=== PATIENT | female | born 1995 | race Caucasian/White ===

== ENCOUNTER 2016-09-14 11:46 | Emergency (ER) | payer SELFPAY ==
[~2016-09-14 11:46] MED LIST: ABILIFY2 MG PO; ADDERALL 15 MG15 MG PO; AMOXIL400 MG/5 M PO; ANXIETY MED; BIRTH CONTROL; CIPRO500 MG PO; CYCLOBENZAPRINE5 M1 PO; FLEXERIL10 MG PO; FLUOXETINE HCL20 MG PO; IBUPROFEN800 M1 PO; MOTRIN800 MG PO; NORCO 5-325 TA1 EACH PO; PERCOCET 5MG/AP1 TAB PO; PRENA1 CHEW TA1.4 M1 PO; PRENATAL1 EACH PO
[2016-10-23] MEDS ORDERED: IBUPROFEN200 M2 PO (14:58)
[2016-10-23] MEDS ORDERED: ABILIFY IM (14:58)
== END 2016-09-14 14:05 | disposition left against medical advice (07) ==
LOC: EDMED 11:46
DX: R10.30 Lower abdominal pain, unspecified (principal); Z53.21 Procedure and treatment not carried out due to patient leaving prior to being seen by health care provider